=== PATIENT | male | born 1945 | race Caucasian/White ===

== ENCOUNTER 2020-10-10 07:38 | Outpatient (CLI) | payer MEDICARE, BC ==
[2020-10-10 12:51] LABS: Hemoglobin 14.5 g/dL (14.0-18.0)
[2020-10-10 13:28] LABS: Anion Gap 13 mmol/L (10-20); BUN (Urea Nitrogen) 18 mg/dL (8.4-25.7); Calc. Creatinine Clearance 0 mL/min (70-130); Calcium 9.5 mg/dL (7.8-10.44); Carbon Dioxide 30 mmol/L (23-31); Chloride 102 mmol/L (98-107); Glucose 86 mg/dL (83-110); Potassium 4.7 mmol/L (3.5-5.1); Sodium 140 mmol/L (136-145)
[2020-10-10 23:46] LABS: SARS-CoV-2 MS2 Positive; SARS-CoV-2 N Gene Negative; SARS-CoV-2 S Gene Negative; SARS-CoV-2 by NAA Not Detected (NotDetected); SARS-CoV-2 orf1ab Negative
== END 2020-10-10 07:39 | disposition home or self-care (01) ==
LOC: LABBT 07:38
PROVIDERS: ATTEND Student in an Organized Health Care Education/Training Program
DX: Z01.812 Encounter for preprocedural laboratory examination (principal); Z20.828 Contact with and (suspected) exposure to other viral communicable diseases; C44.310 Basal cell carcinoma of skin of unspecified parts of face; H60.542 Acute eczematoid otitis externa, left ear; L29.9 Pruritus, unspecified; L53.9 Erythematous condition, unspecified
CPT/HCPCS: 80048; 85014; 85018; U0003; 87635

== ENCOUNTER 2020-10-15 10:24 | Day surgery (SDC) | payer MEDICARE, BC ==
[2020-10-14 13:11] VITALS: BMI 24.3
[~2020-10-15 10:24] MED LIST: Dexamethasone 20 MG/5 ML VIAL ONE; Glycopyrrolate 0.2 MG/ML 5 ML SYRINGE ONE; Lidocaine 1% PF 5 ML VIAL ONE; Ondansetron PF 4 MG/2 ML Vial ONE; PHENYLEPHRINE-NS 100 MCG/ML 10 ML SYRINGE ONE; PROPOFOL 200 MG/20 ML VIAL ONE; Vecuronium 10 MG VIAL ONE; ePHEDrine 50 MG/ML VIAL ONE
[2020-10-15] MEDS ORDERED: Midazolam HCl 2 mg/2 ml Vial ONE ×2 (14:20→15:08)
[2020-10-15] MEDS ORDERED: Tobramycin/dex OPTH 2.5 ML BOT ONE (15:00)
[2020-10-15] MEDS ORDERED: Bacitracin Zinc Ointment 30 gm TUBE ONE (15:00)
[2020-10-15] MEDS ORDERED: Lidocaine 1% w/Epinephrine 1:100K 20 ML VIAL ONE (15:00)
[2020-10-15] MEDS ORDERED: Fentanyl 100 MCG/2 ML VIAL ONE (16:05)
[2020-10-15] MEDS ORDERED: Lidocaine 2% Jelly 5 ML TUBE ONE (16:05)
[2020-10-15] MEDS ORDERED: Ciprofloxacin 0.2% Otic (0.25ML CONTAINER) ONE (18:10)
[2020-10-15] MEDS ORDERED: HYDROcodone/Acetaminophen 5/325 mg Tablet ONE (19:02)
--- NOTE | 2020-10-16 13:33 | OP ---
DATE OF PROCEDURE: 10/15/2020 PREOPERATIVE DIAGNOSIS: Basal cell carcinoma and severe pruritus of the ear canal. POSTOPERATIVE DIAGNOSIS: Basal cell carcinoma and severe pruritus of the ear canal. PROCEDURES: Radical excision of left ear canal mass and full-thickness skin graft. PERMIT: Procedures, benefits, risks including those of bleeding, infection, injury from anesthesia, hearing loss, allergic reaction, scarring necessitating revision, repair or recurrence were reviewed with the patient and alternatives as well with the family who expressed understanding of the information. The consent form was signed and witnessed and a paper copy of the consent form is available for review in the paper chart. INDICATION: Male patient presenting to the clinic with history of several basal cell skin cancers of the ear with intense pruritus. Biopsy was taken in the ear canal, which noted a basal cell skin cancer, which was taking up the significant portion of the ear canal over two separate biopsies. The patient was then taken to the operating room for operative treatment. ASSISTANTS: None. FINDINGS: Basal cell carcinoma of the ear canal. Patent ear canal and intact ear drum. DESCRIPTION OF OPERATION: The patient was brought to the operating room and laid supine on the operating room table. General endotracheal anesthesia was administered, and the patient was turned 90 degrees to the right. The ear canal was infiltrated with 1% lidocaine with 1:100,000 epinephrine as well as the left neck skin in a natural neck skin crease. After this was performed, the patient was prepped and draped in a sterile fashion. The microscope was brought in and the ear canal was cleaned, and any remaining prep staining cerumen was removed with the help of suction and cerumen loop. The ear speculum was used to evaluate the entire ear canal and the mass in previous biopsy site was noted. A Ashe blade was used to make an excision surrounding the mass with cuff of what appeared to be healthy tissue which was removed, and the margins were inked and sutures were placed to betty the specimen and sent for pathologic evaluation. At this point, the ear was packed and attention was turned to the full-thickness skin graft. The neck crease was identified and a roughly 3.5 cm elliptical incision was designed with a marking pen and incised with a 15-blade scalpel, and with Adson's and a 15-blade scalpel, the dermis was from the adipose tissue of the subcutaneous tissue, and the full-thickness skin graft was then placed on a cutting block and then the dermis was then cut roughly half to thin the full-thickness skin graft and then the full-thickness skin graft was then cut with a 15 blade in order to pie crust the full-thickness skin graft and relieve any possible fluid collection, hematoma, seroma, which may develop and shear the full-thickness skin graft from the ear canal. After this was completed, saline was used to soak the skin graft, and attention was turned back to the ear canal. At this point, Pathology announced that there was positive margin both medially and laterally. However, the anterior and posterior margin were clear. The microscope was brought into place again, and the Ashe blade was used to make a medial margin excision using ink to betty the medial border and sent for pathologic evaluation. Another resection was made at the lateral portion of the ear canal with a marking pen, used to ink the lateral margin, was sent for pathologic evaluation. Hemostasis was achieved with Bovie cautery and ear was then packed. Attention was turned to the neck incision for the full-thickness skin graft. Deep dermal stitches were then placed with 3-0 Vicryl and then running 5-0 fast gut was then placed to close the incision. The ear canal was then again examined and any residual bleeding was cauterized. At this point, Pathology called to announce that both the medial and lateral margins were clear, and the full-thickness skin graft was then brought into place. A stitch using a modified Monocryl needle was then compressed in order to fit in the ear canal and a small bite of tissue was made medially and then used to anchor the full-thickness skin graft in the ear canal and sutured tight. A tacking suture was then placed anterior posteriorly as well as three sutures on the outer rim of the lateral portion of the ear canal to hold the full-thickness skin graft in place. Then, an ear packing bolster was then made using a section of a Merocel wrapped in Xeroform gauze, which was placed in the ear and then antibiotic ear drops were placed on the Merocel in order to expand the foam and press down on the full-thickness skin graft in order to allow it to take blood supply from the wound bed. Cotton ball was then placed in the ear and bandage was placed over the ear to hold the packing in place, and the patient turned over to Anesthesia for emergence, and there were no complications. Job ID: [id number] [facility]
--- NOTE | 2020-10-22 06:43 | PQF ---
[facility] POST DISCHARGE CLINICAL DOCUMENTATION IMPROVEMENT CLARIFICATION FORM Todays Date: 10/22/20 Patients Name JEANCARLOS NAQVI Admit Date 10/15/20 Disch Date 10/15/20 Instrumental Teacher Name Sammy Pablo Email: [email or web address]: [phone] To be completed by Instrumental Teacher: Present Clinical Indicators - Signs / Symptoms Results and Location in Medical Record [ ] Documentation of: [ ] [ ] Documentation of: [ ] [ ] Documentation of: [ ] [ ] Documentation of: [ ] [ ] Risks [ ] [ ] [ ] Treatment [ ] Basal cell carcinoma left ear (Path report 10/16) 1.Query for size of excised lesion w/ appropriate margins (cm) 3.5 cm lesion with two rounds of excision 2.Area (sq cm) of full thickness skin graft. 24 sq cms [ ] [ ] To be completed by Physician: DR. PATRICIA CARR The documentation in this patients record requires clarification to ensure coding compliance and accuracy. Check the appropriate box and include in your discharge summary. [ ] [ ] [ ] [ ] Please check this box if this does not apply to this patient [ ] Unable to determine [ ] Other diagnosis: Review the following information and exercise your independent professional judgment in responding to the clarification. Based upon the clinical findings, risk factors, and treatment, please clarify if you are treating one of the above probable or suspected diagnoses. Physician Signature: Date Time MTDD
== END 2020-10-15 19:50 | disposition home or self-care (01) ==
LOC: SDC 10:24
PROVIDERS: ATTEND Student in an Organized Health Care Education/Training Program
PROC: 0HR3X73 Replacement of Left Ear Skin with Autologous Tissue Substitute, Full Thickness, External Approach (ICD-10-PCS; principal; 2020-10-15)
DX: C44.219 Basal cell carcinoma of skin of left ear and external auricular canal (principal); L29.8 Other pruritus; I25.10 Atherosclerotic heart disease of native coronary artery without angina pectoris; I10 Essential (primary) hypertension; E78.2 Mixed hyperlipidemia; Z79.82 Long term (current) use of aspirin; Z79.899 Other long term (current) drug therapy
CPT/HCPCS: 88305; 88331; 88332; J1100; J2250; J2405; J2704; J3010; J3490

== ENCOUNTER 2023-05-06 09:32 | Outpatient (CLI) | payer MEDICARE, BC ==
[2023-05-06 11:46] LABS: Anion Gap 12 mmol/L (10-20); BUN (Urea Nitrogen) 17 mg/dL (8.4-25.7); Calc. Creatinine Clearance 0 mL/min (70-130); Calcium 9.2 mg/dL (7.8-10.44); Carbon Dioxide 29 mmol/L (23-31); Chloride 102 mmol/L (98-107); Estimated GFR 74; Glucose 89 mg/dL (83-110); Potassium 4.2 mmol/L (3.5-5.1); Sodium 139 mmol/L (136-145)
[2023-05-06 12:04] LABS: Hemoglobin 14.3 g/dL (13.5-17.5)
== END 2023-05-06 09:33 | disposition home or self-care (01) ==
LOC: LABBT 09:32
PROVIDERS: ATTEND Student in an Organized Health Care Education/Training Program
DX: Z01.818 Encounter for other preprocedural examination (principal); C44.219 Basal cell carcinoma of skin of left ear and external auricular canal
CPT/HCPCS: 80048; 85014; 85018; 93005; 93010

== ENCOUNTER 2023-05-11 09:00 | Day surgery (SDC) | payer MEDICARE, BC ==
[2023-05-06 10:35] VITALS: BMI 25.8
[2023-05-11] MEDS ORDERED: Bacitracin Zinc Ointment 30 gm TUBE ONE (09:29)
[2023-05-11] MEDS ORDERED: Lidocaine 1% (PF) 30 ML VIAL ONE (09:29)
[2023-05-11] MEDS ORDERED: Mineral Oil Sterile 10 ML VIAL ONE (09:29)
[2023-05-11] MEDS ORDERED: EPINEPHrine 1 MG/ML AMP ONE ×3 (09:29→11:27)
[2023-05-11] MEDS ORDERED: fentaNYL PF 100 MCG/2 ML SYRINGE ONE (09:46)
[2023-05-11] MEDS ORDERED: SUGAMMADEX SODIUM 200 MG/2 ML VIAL ONE (09:46)
[2023-05-11] MEDS ORDERED: Phenylephrine 10 MG/ML VIAL ONE (09:53)
[2023-05-11] MEDS ORDERED: CEFAZOLIN 2 GM VIAL ONE (10:02)
[2023-05-11] MEDS ORDERED: Sodium Chloride 0.9% 100 ML ONE (10:02)
[2023-05-11] MEDS ORDERED: PHENYLEPHRINE-NS 100 MCG/ML 10 ML SYRINGE ONE (10:09)
[2023-05-11] MEDS ORDERED: Lidocaine 1% PF 5 ML VIAL ONE (10:09)
[2023-05-11] MEDS ORDERED: ePHEDrine Sulfate 50 MG/10 ML VIAL ONE (10:09)
[2023-05-11] MEDS ORDERED: Dexamethasone 20 MG/5 ML VIAL ONE (10:09)
[2023-05-11] MEDS ORDERED: Ondansetron PF 4 MG/2 ML Vial ONE (10:09)
[2023-05-11] MEDS ORDERED: PROPOFOL 200 MG/20 ML VIAL ONE (10:09)
[2023-05-11] MEDS ORDERED: Rocuronium Bromide 10 MG/ML (10ML VIAL) ONE (10:09)
[2023-05-11] MEDS ORDERED: fentaNYL 50 mcg/mL 1 mL Vial ONE (12:52)
[2023-05-11] MEDS ORDERED: HYDROcodone/Acetaminophen 5/325 mg Tablet ONE (13:30)
== END 2023-05-11 14:10 | disposition home or self-care (01) ==
LOC: SDC 09:00
PROVIDERS: ATTEND Student in an Organized Health Care Education/Training Program
PROC: 0HR3X73 Replacement of Left Ear Skin with Autologous Tissue Substitute, Full Thickness, External Approach (ICD-10-PCS; principal; 2023-05-11)
PROC: 0HR3X73 Replacement of Left Ear Skin with Autologous Tissue Substitute, Full Thickness, External Approach (ICD-10-PCS; 2023-05-11)
PROC: 0HB3XZZ Excision of Left Ear Skin, External Approach (ICD-10-PCS; 2023-05-11)
DX: C44.219 Basal cell carcinoma of skin of left ear and external auricular canal (principal); S01.302A Unspecified open wound of left ear, initial encounter; Z79.82 Long term (current) use of aspirin; Z79.899 Other long term (current) drug therapy; F41.9 Anxiety disorder, unspecified; X58.XXXA Exposure to other specified factors, initial encounter
CPT/HCPCS: 11043; 11642; 15120; 15260; J3010; 88305; J0171; J1100; J2001; J2370; J2405; J2704; J3490